=== PATIENT | male | born 1995 | race Caucasian/White ===

== ENCOUNTER 2017-11-26 19:43 | Emergency (ER) | payer OTHER ==
[~2017-11-26] VITALS: Ht 190.5 cm; Wt 100.9 kg
[~2017-11-26 19:43] MED LIST: ADDERALL10 MG PO; ELIMITE 5% CREA60 GM TP
[2017-11-26 20:16] LABS: APPEARANCE CLEAR ((CLEAR)); BILIRUBIN NEGATIVE; BLOOD NEGATIVE; COLOR YELLOW ((YELLOW)); GLUCOSE (STRIP) NEGATIVE; KETONES NEGATIVE; LEUKOCYTES NEGATIVE; NITRITE NEGATIVE; PROTEIN (STRIP) 30; SPECIFIC GRAVITY 1.029 (1.000-1.030); UCUL ADDED? NO
[2017-11-26 20:16] LABS: HEMATOCRIT 44.3 % (38.0-50.0); HEMOGLOBIN 16.1 G/DL (12.5-16.6); MCH 32.2 PG (29.0-34.0); MCHC 36.3 G/DL (30.0-36.0); MCV 88.6 FL (86-99); PLATELET COUNT 244 K/uL (156-360); RBC DIS.WIDTH-CV 12.8 % (11.8-14.6); RBC DIS.WIDTH-SD 41.6 % (39-53); WHITE BLOOD COUNT 9.2 K/uL (4.1-10.2)
[2017-11-26 20:23] LABS: AMPHETAMINE NEGATIVE (500 ng/mL); BARBITURATES NEGATIVE (200 ng/mL); BENZODIAZEPINES NEGATIVE (150 ng/mL); BUPRENORPHINE NEGATIVE (10 ng/mL); COCAINE NEGATIVE (150 ng/mL); METHADONE NEGATIVE (200 ng/mL); METHAMPHETAMINE NEGATIVE (500 ng/mL); OPIATES (MORPHINE) NEGATIVE (100 ng/mL); OXYCODONE NEGATIVE (100 ng/mL); PHENCYCLIDINE NEGATIVE (25 ng/mL); PROPOXYPHENE NEGATIVE (300 ng/mL); THC CANNABINOIDS PRESUMPTIVE POSITIVE (50 ng/mL); TRICYCLIC ANTIDEPRESSANTS NEGATIVE (300 ng/mL)
[2017-11-26 20:26] LABS: ALBUMIN 4.8 g/dL (3.2-4.8); CHLORIDE 107 mEq/L (99-109); POTASSIUM 3.4 mEq/L (3.7-5.4); SODIUM 141 mEq/L (136-147)
[2017-11-26 20:29] LABS: GLUCOSE 97 mg/dL (70-99); TOTAL PROTEIN 7.7 g/dL (6.4-8.3)
[2017-11-26 20:30] LABS: TOTAL BILIRUBIN 0.9 mg/dL (0.0-1.0)
[2017-11-26 20:31] LABS: SERUM ETHYL ALCOHOL < 10 mg/dL
[2017-11-26 20:32] LABS: ALKALINE PHOSPHATASE 90 IU/L (3-129); GFR ESTIMATE (CALCULATED) > 59 mL/min/ (58.99-99999)
[2017-11-26 20:33] LABS: UREA NITROGEN (BUN) 14 mg/dL (9-23)
[2017-11-26 20:34] LABS: AST (GOT) 37 IU/L (2-34)
[2017-11-26 20:35] LABS: ALT (GPT) 25 IU/L (3-49)
[2017-11-26 23:47] VITALS: BP 135/87
== END 2017-11-26 23:48 | disposition home or self-care (01) ==
LOC: EME 19:43
PROVIDERS: Emergency Medicine
DX: F32.9 Major depressive disorder, single episode, unspecified (principal); F12.10 Cannabis abuse, uncomplicated; F43.20 Adjustment disorder, unspecified; R45.851 Suicidal ideations; F31.9 Bipolar disorder, unspecified; F90.9 Attention-deficit hyperactivity disorder, unspecified type; F17.200 Nicotine dependence, unspecified, uncomplicated; Z88.1 Allergy status to other antibiotic agents
CPT/HCPCS: 80053; 81003; 84999; 85027; 90837; 99281; 99285; G0480